=== PATIENT | male | born 1945 | race Two or more races ===

== ENCOUNTER 2023-11-19 11:38 | Inpatient (IN) | payer MEDICARE, OTHER ==
[~2023-11-19] VITALS: Ht 175.3 cm; Wt 85.3 kg
[2023-11-19] MEDS: SODIUM CHLORIDE 0.9% 1,000 ML IV ONE (11:48)
[2023-11-19 11:50] VITALS: RESP 20; O2SAT 100
[2023-11-19 12:23] LABS: Basophils # (auto) 0.1 10 ^3/uL (0-0.2); Basophils % (auto) 0.8 % (0.0-2.0); Eosinophils # (auto) 0.1 10 ^3/uL (0-0.8); Eosinophils % (auto) 0.9 % (0.0-7.0); Hematocrit 29.5 % (41.0-53.0); Hemoglobin 9.5 g/dL (13.5-17.5); Lymphocytes # (auto) 0.8 10 ^3/uL (0.4-5.4); Lymphocytes % (auto) 5.8 % (10.0-50.0); Mean Corpuscular Hemoglobin 29.1 pg (28.0-32.0); Mean Corpuscular Hgb Conc. 32.1 g/dL (32.0-36.0); Mean Corpuscular Volume 90.7 fL (80.0-100.0); Monocytes # (auto) 0.9 10 ^3/uL (0-1.3); Monocytes % (auto) 6.2 % (0.0-12.0); Neutrophils # (auto) 12.5 10 ^3/uL (1.6-8.6); Neutrophils % (auto) 86.3 % (37.0-80.0); Red Blood Cells 3.26 10^6/uL (4.5-5.90); Red Cell Distribution Width 14.9 % (11.8-14.3); White Blood Cell 14.5 10^3/uL (4.4-10.8)
[2023-11-19 12:45] LABS: Alanine Aminotransferase 22 U/L (7-40); Alkaline Phosphatase 58 U/L (46-116); Anion Gap 6 (5-15); Aspartate Aminotransferase 19 U/L (13-40); BUN/Creatinine Ratio 20.6 (10.0-20.0); Blood Urea Nitrogen 33 mg/dL (9-23); Calcium 9.6 mg/dL (8.7-10.4); Carbon Dioxide 23 mmol/L (20-30); Chloride 107 mmol/L (98-107); Glucose 123 mg/dL (74-106); Potassium 4.4 mmol/L (3.5-5.1); Sodium 136 mmol/L (136-145)
[2023-11-19] MEDS ORDERED: DOCUSATE SOD 100 MG CAP PO PRN (12:45)
[2023-11-19] MEDS ORDERED: ONDANSETRON HCL 4 MG/2 ML VIAL IV PRN (12:45)
[2023-11-19] MEDS ORDERED: NITROGLYCERIN 0.4 MG SL TAB SL PRN (12:45)
[2023-11-19] MEDS ORDERED: ACETAMINOPHEN 325 MG TAB PO PRN (12:45)
[2023-11-19] MEDS ORDERED: MORPHINE SULFATE INJ 2 MG/ml SYRG IV PRN ×2 (12:45)
[2023-11-19] MEDS ORDERED: TEMAZEPAM 15 MG CAP PO PRN (12:45)
[2023-11-19 12:46] LABS: Albumin 3.1 g/dL (3.2-4.8); Bilirubin, Total 0.2 mg/dL (0.2-1.0)
[2023-11-19 12:56] LABS: Lactic Acid w/Reflex 2.2 mmol/L (0.4-2.0)
[2023-11-19 13:01] LABS: INR 1.12 (0.9-1.15); Prothrombin Time 11.8 sec (9.3-11.8)
[2023-11-19 13:09] LABS: Urine Bacteria None Seen /hpf (None Seen)
[2023-11-19 14:47] LABS: Urine Blood Negative /uL (Negative); Urine Clarity Clear (Clear); Urine Color Light-Yellow (Yellow); Urine Protein, UAD Negative (Negative); Urine Specific Gravity 1.011 (1.001-1.035); Urine Urobilinogen Normal (Negative); Urine WBC <1 /hpf (0 - 3)
[2023-11-19] MEDS: SODIUM CHLORIDE 0.9% 1,000 ML IV SCH ×2 (14:57→18:28)
[2023-11-19] MEDS: ENOXAPARIN SOD 80 MG/0.8ML SYRINGE SC SCH (18:46)
[2023-11-19 18:48] LABS: Amphetamine Screen, Urine Neg (NEGATIVE); Barbiturate Scree,Urine Neg (NEGATIVE); Benzodiazephine Screen, Urine Neg (NEGATIVE); Cocaine Screen, Urine Neg (NEGATIVE); Opiate Scree,Urine Neg (NEGATIVE)
[2023-11-19 18:49] LABS: Cannabinoid Screen, Urine Neg (NEGATIVE); Phencyclidine Screen, Urine Neg (NEGATIVE)
[2023-11-19 19:30] VITALS: PULSE 60; RESP 19; O2SAT 98
[2023-11-19 22:37] VITALS: BP 138/56; PULSE 62; RESP 16; TEMP 97.7; O2SAT 94
[2023-11-20] VITALS (9 sets, daily range): BP systolic 120–138; BP diastolic 57–65; PULSE 59–62; RESP 17–19; TEMP 97.7–98.8; O2SAT 93–99
[2023-11-20 07:29] LABS: Basophils # (auto) 0.1 10 ^3/uL (0-0.2); Eosinophils # (auto) 0.2 10 ^3/uL (0-0.8); Eosinophils % (auto) 1.5 % (0.0-7.0); Hematocrit 26.3 % (41.0-53.0); Hemoglobin 8.8 g/dL (13.5-17.5); Lymphocytes # (auto) 0.9 10 ^3/uL (0.4-5.4); Lymphocytes % (auto) 7.4 % (10.0-50.0); Mean Corpuscular Hemoglobin 29.6 pg (28.0-32.0); Mean Corpuscular Hgb Conc. 33.3 g/dL (32.0-36.0); Mean Corpuscular Volume 88.9 fL (80.0-100.0); Monocytes # (auto) 1.1 10 ^3/uL (0-1.3); Monocytes % (auto) 8.9 % (0.0-12.0); Neutrophils # (auto) 10.1 10 ^3/uL (1.6-8.6); Neutrophils % (auto) 81.2 % (37.0-80.0); Red Blood Cells 2.96 10^6/uL (4.5-5.90); Red Cell Distribution Width 14.9 % (11.8-14.3); White Blood Cell 12.5 10^3/uL (4.4-10.8)
[2023-11-20 07:52] LABS: Alanine Aminotransferase 18 U/L (7-40); Albumin 2.9 g/dL (3.2-4.8); Alkaline Phosphatase 51 U/L (46-116); Anion Gap 2 (5-15); Aspartate Aminotransferase 14 U/L (13-40); BUN/Creatinine Ratio 22.7 (10.0-20.0); Bilirubin, Total 0.4 mg/dL (0.2-1.0); Blood Urea Nitrogen 25 mg/dL (9-23); Calcium 9.2 mg/dL (8.7-10.4); Carbon Dioxide 27 mmol/L (20-30); Chloride 108 mmol/L (98-107); Glucose 96 mg/dL (74-106); Potassium 4.8 mmol/L (3.5-5.1); Sodium 137 mmol/L (136-145); Total Protein 4.9 g/dL (5.7-8.2)
[2023-11-20] MEDS: HYDROcodone-ACET 5/325MG TAB PO PRN (10:43)
[2023-11-20] MEDS: PANTOPRAZOLE 40 MG/10 ML VIAL INJ IV SCH (11:54)
[2023-11-21] VITALS (8 sets, daily range): BP systolic 129–140; BP diastolic 51–87; PULSE 60–64; RESP 1–19; TEMP 97.9–99.8; O2SAT 97–99
[2023-11-21] MEDS: ENOXAPARIN SOD 80 MG/0.8ML SYRINGE SC SCH (10:30)
[2023-11-22] VITALS (8 sets, daily range): BP systolic 109–153; BP diastolic 49–72; PULSE 60–98; RESP 16–20; TEMP 97.7–98.5; O2SAT 97–100
[2023-11-22] MEDS ORDERED: AMIO100T3 PO (11:41)
[2023-11-22] MEDS ORDERED: PRAV20TA3 (11:41)
[2023-11-22] MEDS ORDERED: TAMS0.4C36 PO (11:41)
[2023-11-22] MEDS ORDERED: APIX5TAB PO (11:41)
[2023-11-22] MEDS ORDERED: PANT40T PO (11:41)
[2023-11-22] MEDS ORDERED: LISI40TA16 PO (11:41)
[2023-11-22] MEDS ORDERED: LEVO50TA7 PO (11:41)
[2023-11-22] MEDS ORDERED: METO25TA93 PO (11:41)
[2023-11-22] MEDS ORDERED: CLOP75TA70 PO (11:41)
[2023-11-22] MEDS ORDERED: APIXABAN 5 MG TAB PO SCH (22:00)
[2023-11-23] VITALS (10 sets, daily range): BP systolic 115–150; BP diastolic 55–74; PULSE 58–72; RESP 15–20; TEMP 97.9–98.6; O2SAT 96–99
[2023-11-23] MEDS: APIXABAN 5 MG TAB PO SCH ×2 (04:49→08:25)
[2023-11-23] MEDS: LEVOTHYROXINE SODIUM 50 MCG TAB PO SCH (06:49)
[2023-11-23] MEDS: AMIODARONE HCL 200 MG TAB PO SCH (08:23)
[2023-11-23] MEDS: LISINOPRIL 20 MG TAB PO SCH (08:24)
[2023-11-23] MEDS: TAMSULOSIN HYDROCHLORIDE 0.4 MG CAP PO SCH (08:25)
[2023-11-23] MEDS: CLOPIDOGREL BISULFATE 75 MG TAB PO SCH (08:25)
[2023-11-23] MEDS: PRAVASTATIN SODIUM 20 MG TAB PO SCH (08:29)
[2023-11-23] MEDS ORDERED: IOHEXOL 350 MG/ML 100ML IJ ONE ×2 (09:48→11:05)
[2023-11-23 10:14] LABS: Basophils # (auto) 0.1 10 ^3/uL (0-0.2); Eosinophils # (auto) 0.3 10 ^3/uL (0-0.8); Eosinophils % (auto) 2.7 % (0.0-7.0); Hematocrit 26.8 % (41.0-53.0); Hemoglobin 8.8 g/dL (13.5-17.5); Lymphocytes # (auto) 0.8 10 ^3/uL (0.4-5.4); Lymphocytes % (auto) 8.2 % (10.0-50.0); Mean Corpuscular Hemoglobin 29.6 pg (28.0-32.0); Mean Corpuscular Volume 89.7 fL (80.0-100.0); Monocytes # (auto) 0.8 10 ^3/uL (0-1.3); Monocytes % (auto) 8.1 % (0.0-12.0); Neutrophils # (auto) 7.6 10 ^3/uL (1.6-8.6); Red Blood Cells 2.98 10^6/uL (4.5-5.90); Red Cell Distribution Width 14.9 % (11.8-14.3); White Blood Cell 9.5 10^3/uL (4.4-10.8)
[2023-11-23 10:44] LABS: Alanine Aminotransferase 21 U/L (7-40); Alkaline Phosphatase 53 U/L (46-116); Anion Gap 2 (5-15); Aspartate Aminotransferase 15 U/L (13-40); BUN/Creatinine Ratio 12.1 (10.0-20.0); Bilirubin, Total 0.3 mg/dL (0.2-1.0); Blood Urea Nitrogen 12 mg/dL (9-23); Calcium 9.4 mg/dL (8.5-10.1); Carbon Dioxide 29 mmol/L (20-30); Chloride 105 mmol/L (98-107); Glucose 131 mg/dL (74-106); Potassium 4.1 mmol/L (3.5-5.1); Sodium 136 mmol/L (136-145)
== END 2023-11-23 22:30 | DRG 183 ==
LOC: EDBD 11:38 → ER 11:38 → TELE-WESTW 12:47 → TELE 12:47 → SUATTDRO 13:12 → TELE-WESTW 22:44
PROVIDERS: ADMIT Nurse Practitioner; ATTEND Nurse Practitioner
PROC: 4B02XSZ Measurement of Cardiac Pacemaker, External Approach (ICD-10-PCS; principal; 2023-11-23)
DX: S22.42XA Multiple fractures of ribs, left side, initial encounter for closed fracture (principal); N17.0 Acute kidney failure with tubular necrosis; I95.9 Hypotension, unspecified; K44.9 Diaphragmatic hernia without obstruction or gangrene; R79.89 Other specified abnormal findings of blood chemistry; I48.0 Paroxysmal atrial fibrillation; I25.10 Atherosclerotic heart disease of native coronary artery without angina pectoris; E03.9 Hypothyroidism, unspecified; N40.0 Benign prostatic hyperplasia without lower urinary tract symptoms; E78.5 Hyperlipidemia, unspecified; K40.90 Unilateral inguinal hernia, without obstruction or gangrene, not specified as recurrent; K80.20 Calculus of gallbladder without cholecystitis without obstruction; W18.39XA Other fall on same level, initial encounter; I12.9 Hypertensive chronic kidney disease with stage 1 through stage 4 chronic kidney disease, or unspecified chronic kidney disease; R55 Syncope and collapse; N18.9 Chronic kidney disease, unspecified; Z86.73 Personal history of transient ischemic attack (TIA), and cerebral infarction without residual deficits; Z95.0 Presence of cardiac pacemaker; Y93.89 Activity, other specified; Y92.89 Other specified places as the place of occurrence of the external cause; Y99.8 Other external cause status
CPT/HCPCS: 36415; 70450; 71045; 71250; 71275; 72125; 74176; 80053; 80307; 81001; 82962; 83605; 83880; 84484; 85025; 85379; 85610; 85730; 86708; 87040; 87081; 93005; 93306; 93970; 96360; C9113; G0378